=== PATIENT | female | born 1960 | race Caucasian/White ===

== ENCOUNTER 2016-11-15 17:21 | Observation (INO) | payer OTHER ==
[~2016-11-15] VITALS: Ht 165.1 cm; Wt 70.0 kg
[~2016-11-15 17:21] MED LIST: ALPR-138 PO; LORT5TAB PO; Z.0.BCPILL PO
[2016-11-15 17:24] VITALS: BP 122/80; PULSE 80; RESP 15; TEMP 97.8; O2SAT 99
[2016-11-15] MEDS ORDERED: SERT-129 PO (18:35)
[2016-11-15] MEDS ORDERED: ALPR.25 PO (18:35)
[2016-11-15] MEDS ORDERED: XANA1TAB2 PO (18:35)
[2016-11-15] MEDS ORDERED: ATOR20TA15 PO (18:35)
[2016-11-15] MEDS ORDERED: CYCL1TAB29 PO (18:35)
[2016-11-15] MEDS ORDERED: AMLO5TAB2 PO (18:35)
[2016-11-15] MEDS ORDERED: LISI-515 PO (18:35)
[2016-11-15] MEDS ORDERED: ASPIRIN 325 MG TAB PO ONE (18:45)
[2016-11-15] MEDS ORDERED: SODIUM CHLORIDE 0.9% FLUSH 10 ML FLUSH IVF PRN (18:45)
--- NOTE | 2016-11-15 18:51 | PD ---
HPI Chief Complaint: Cardiac Complaint Time Seen by Provider: 18:21 Travel History International Travel<30 days: No Contact w/Intl Traveler<30days: No Traveled to known affect area: No History of Present Illness HPI 56yo F with PMH of HTN here with c/o chest pain and abdominal pain today. States she has not been feeling well for a week and this morning, she was nauseous and lightheaded. She started having midsternal chest pain that feels like someone is sitting on her chest. States it is intermittent, nonradiating and associated with some tingling in her fingers and sob. Also with intermittent abdominal pain that is sharp. Pain is epigastric, radiates to left and right upper abdomen. +Cough. Denies any fever, dysuria, hematuria, diarrhea. PFSH Past Medical History Cardiovascular Problems: Yes High Cholesterol: Yes Diminished Hearing: No Hypertension: Yes (TXT IN THE PAST) Immunizations Current: Yes ?: Not : 3 Para: 3 Past Surgical History Section: Yes (X3) Family History Family Myocardial Infarction: Yes Social History Alcohol Use: Yes (2BEERS/DAY) Tobacco Use: No Substance Use: No Allergies-Medications (Allergen,Severity, Reaction): Coded Allergies: tetanus toxoid, adsorbed (Unverified Allergy, Severe, 10/13/16) Reported Meds & Prescriptions Reported Meds & Active Scripts Active Reported Xanax (Alprazolam) 0.25 Mg Tab 0.25 Mg PO Q4H PRN Lisinopril 20 Mg Tab 20 Mg PO DAILY Atorvastatin (Atorvastatin Calcium) 20 Mg Tab 20 Mg PO HS Amlodipine (Amlodipine Besylate) 5 Mg Tab 5 Mg PO DAILY Sertraline (Sertraline HCl) 100 Mg Tab 100 Mg PO DAILY Review of Systems Except as stated in HPI: all other systems reviewed are Neg Physical Exam Narrative GENERAL: 56yo F in mild distress. SKIN: Focused skin assessment warm/dry. HEAD: Atraumatic. Normocephalic. EYES: Pupils equal and round. No scleral icterus. No injection or drainage. ENT: No nasal bleeding or discharge. Mucous membranes pink and moist. NECK: Trachea midline. No JVD. CARDIOVASCULAR: Regular rate and rhythm. No murmur appreciated. RESPIRATORY: No accessory muscle use. Clear to auscultation. Breath sounds equal bilaterally. GASTROINTESTINAL: Abdomen soft, +TTP epigastric, LUQ, RUQ. No rebound tenderness or guarding. MUSCULOSKELETAL: No obvious deformities. No clubbing. No cyanosis. No edema. NEUROLOGICAL: Awake and alert. No obvious cranial nerve deficits. Motor grossly within normal limits. Normal speech. PSYCHIATRIC: Appropriate mood and affect; insight and judgment normal. Data Data Last Documented VS Vital Signs Date Time Temp Pulse Resp B/P (MAP) Pulse Ox O2 Delivery O2 Flow Rate FiO2 11/15/16 19:47 99 16 149/85 (106) 95 Room Air 11/15/16 17:24 97.8 Orders Orders Electrocardiogram (11/15/16 ) Basic Metabolic Panel (Bmp) (11/15/16 18:37) Complete Blood Count With Diff (11/15/16 18:37) Magnesium (Mg) (11/15/16 18:37) Prothrombin Time / Inr (Pt) (11/15/16 18:37) Act Partial Throm Time (Ptt) (11/15/16 18:37) Troponin I (11/15/16 18:37) Chest, Single Ap (11/15/16 18:37) Ecg Monitoring (11/15/16 18:37) Bilateral Bp Monitoring (11/15/16 18:37) Iv Access Insert/Monitor (11/15/16 18:37) Oximetry (11/15/16 18:37) Oxygen Administration (11/15/16 18:37) Aspirin (Aspirin) (11/15/16 18:45) Sodium Chloride 0.9% Flush (Ns Flush) (11/15/16 18:45) Lipase (11/15/16 18:37) Urinalysis - C+S If Indicated (11/15/16 18:37) Morphine Inj (Morphine Inj) (11/15/16 19:00) Cta Thor Abd Aorta W Iv C W3d (11/15/16 19:02) Iohexol 350 Inj (Omnipaque 350 Inj) (11/15/16 19:18) Potassium Chloride (Kcl) (11/15/16 19:30) Bladder Scan PRN (11/15/16 19:36) Famotidine Inj (Pepcid Inj) (11/15/16 19:45) Al-Mag Hy-Si 40-40-4 Mg/Ml Liq (Mag-Al P (11/15/16 19:45) Lidocaine 2% Viscous (Xylocaine 2% Visco (11/15/16 19:45) Admit Order (Ed Use Only) (11/15/16 20:44) Labs Laboratory Tests Test 11/15/16 18:40 White Blood Count 9.1 TH/MM3 Red Blood Count 4.31 MIL/MM3 Hemoglobin 15.3 GM/DL Hematocrit 43.9 % Mean Corpuscular Volume 101.9 FL Mean Corpuscular Hemoglobin 35.6 PG Mean Corpuscular Hemoglobin Concent 35.0 % Red Cell Distribution Width 12.5 % Platelet Count 283 TH/MM3 Mean Platelet Volume 6.9 FL Neutrophils (%) (Auto) 69.7 % Lymphocytes (%) (Auto) 21.2 % Monocytes (%) (Auto) 7.7 % Eosinophils (%) (Auto) 1.1 % Basophils (%) (Auto) 0.3 % Neutrophils # (Auto) 6.4 TH/MM3 Lymphocytes # (Auto) 1.9 TH/MM3 Monocytes # (Auto) 0.7 TH/MM3 Eosinophils # (Auto) 0.1 TH/MM3 Basophils # (Auto) 0.0 TH/MM3 CBC Comment DIFF FINAL Differential Comment Prothrombin Time 10.5 SEC Prothromb Time International Ratio 1.0 RATIO Activated Partial Thromboplast Time 24.3 SEC Blood Urea Nitrogen 7 MG/DL Creatinine 0.84 MG/DL Random Glucose 97 MG/DL Calcium Level 8.8 MG/DL Magnesium Level 1.8 MG/DL Sodium Level 137 MEQ/L Potassium Level 2.9 MEQ/L Chloride Level 98 MEQ/L Carbon Dioxide Level 27.6 MEQ/L Anion Gap 11 MEQ/L Estimat Glomerular Filtration Rate 71 ML/MIN Troponin I LESS THAN 0.02 NG/ML Lipase 85 U/L [facility] Medical Decision Making Medical Screen Exam Complete: Yes Emergency Medical Condition: Yes Interpretation(s) EKG: NSR 81bpm. TWI V2, V3. Differential Diagnosis ACS vs. anxiety vs. Pneumonia vs. pancreatitis vs. gastritis vs. viral syndrome vs. UTI Narrative Course 56yo F with chest pain as well as abdominal pain that seems to be two different types of pain. Pt seen at end of my shift so sign out to next team to follow up labs, UA, CT and reevaluate. Diagnosis Primary Impression: Chest pain Qualified Codes: R07.9 - Chest pain, unspecified Garcias,Feli DO Nov 15, 2016 18:51
[2016-11-15 18:52] LABS: AUTOMATED NEUTROPHIL # 6.4 TH/MM3 (1.8-7.7); BASOPHIL % 0.3 % (0.0-2.0); EOSINOPHIL # 0.1 TH/MM3 (0-0.4); EOSINOPHIL % 1.1 % (0.0-4.0); HEMATOCRIT 43.9 % (35.0-46.0); HEMO FLAGS DIFF FINAL; LYMPH % 21.2 % (9.0-44.0); LYMPHOCYTE # 1.9 TH/MM3 (1.0-4.8); MEAN CELL VOLUME 101.9 FL (80.0-100.0); MEAN CORPUSCULAR HEMOGLOBIN 35.6 PG (27.0-34.0); MONO % 7.7 % (0.0-8.0); NEUT % 69.7 % (16.0-70.0); PLATELET COUNT 283 TH/MM3 (150-450); RED BLOOD COUNT 4.31 MIL/MM3 (4.00-5.30); RED CELL DISTRIBUTION WIDTH 12.5 % (11.6-17.2); WHITE BLOOD COUNT 9.1 TH/MM3 (4.0-11.0)
[2016-11-15] MEDS ORDERED: MORPHINE SULFATE 4 MG/ML INJ IV PUSH ONE (19:00)
[2016-11-15 19:03] LABS: APTT (PATIENT) 24.3 SEC (24.3-30.1); PROTHROMBIN TIME - PATIENT 10.5 SEC (9.8-11.6)
--- NOTE | 2016-11-15 19:08 | RADRPT ---
EXAM DATE/TIME: 11/15/2016 18:47 [facility] COMPARISON: No previous studies available for comparison. INDICATIONS : Chest pain MEDICAL HISTORY : Hypertension. SURGICAL HISTORY : None. ENCOUNTER: Initial ACUITY: 2 days PAIN SCORE: 3/10 LOCATION: chest FINDINGS: There is trace atelectasis of the left base. No pleural effusion seen. No pneumothorax. Normal heart size and mediastinal silhouette. Thoracic aorta is slightly tortuous. CONCLUSION: Minimal left base atelectasis. Otherwise negative 1 view chest x-ray Osvaldo Rossi MD on November 15, 2016 at 19:06 Board Certified Radiologist. This report was verified electronically.
[2016-11-15] MEDS ORDERED: IOHEXOL 350 MG/ML 10 ML VIAL (for RAD DIAG) IVCONTRAST ONE (19:18)
[2016-11-15 19:19] LABS: ANION GAP 11 MEQ/L (5-15); BICARBONATE 27.6 MEQ/L (21.0-32.0); BLOOD UREA NITROGEN 7 MG/DL (7-18); CHLORIDE 98 MEQ/L (98-107); GLOMERULAR FILTRATION RATE 71 ML/MIN (>89); MAGNESIUM 1.8 MG/DL (1.5-2.5); SODIUM (NA) 137 MEQ/L (136-145)
[2016-11-15 19:22] LABS: POTASSIUM 2.9 MEQ/L (3.5-5.1)
[2016-11-15] MEDS ORDERED: POTASSIUM CHLORIDE 20 MEQ CONTROLLED RELEASE TAB PO ONE (19:30)
--- NOTE | 2016-11-15 19:38 | RADRPT ---
EXAM DATE/TIME: 11/15/2016 19:12 [facility] COMPARISON: No previous studies available for comparison. INDICATIONS : Upper abdominal pain and chest pain. IV CONTRAST: 91 cc Omnipaque 350 (iohexol) IV RADIATION DOSE: 5.49 CTDIvol (mGy) MEDICAL HISTORY : Hypertension. Cardiovascular disease SURGICAL HISTORY : section. ENCOUNTER: Initial ACUITY: 1 day PAIN SCALE: 8/10 LOCATION: Left upper quadrant TECHNIQUE: Volumetric scanning was performed using a multi-row detector CT scanner. The data was post processed with a variety of visualization algorithms including full volume maximum intensity projection, multi -planar sliding thin slab reformation, curved planar reformation, and surface rendering techniques. Using automated exposure control and adjustment of the mA and/or kV according to patient size, radiat ion dose was kept as low as reasonably achievable to obtain optimal diagnostic quality images. DICOM format image data is available electronically for review and comparison. FINDINGS: LUNGS: Trace dependent atelectasis of both bases. No pleural effusion or pneumothorax. MEDIASTINUM: No abnormally enlarged lymph nodes by CT criteria. No axillary or hilar abnormalities are identified. There seems to be some wall thickening of the distal esophagus. ABDOMEN: The liver and spleen are free of focal defects. The gallbladder and pancreas demonstrate no abnormali ty. 8mm left and 12 mm right adrenal nodules. The kidneys demonstrate no evidence of solid renal mass or hydronephrosis. No free fluid or abdominal masses are identified. No para-aortic adenopathy is se en. Normal appendix. PELVIS: No evidence of free fluid or pelvic mass. No abnormally enlarged inguinal or retroperitoneal lymph no esther are present. The bladder is unremarkable. THORACIC AORTA: The thoracic aortic root is normal with normal branching of the great vessels. There is no evidence of aneurysm or dissection. ABDOMINAL AORTA: The aorta is normal in caliber without aneurysm or dissection. The renal arteries are patent bilater ally. The proximal celiac and superior mesenteric arteries are patent and normal in diameter. PELVIC VESSELS: The internal iliac and external iliac vessels are patent without aneurysm or stenosis. CONCLUSION: 1. Normal aorta. 2. Some apparent nonspecific wall thickening of the distal esophagus. Neoplasm, esophagitis and/or re flux disease would be in the differential. 3. Small bilateral adrenal nodules, most likely benign adenomas. Osvaldo Rossi MD on November 15, 2016 at 19:32 Board Certified Radiologist. This report was verified electronically.
[2016-11-15] MEDS ORDERED: ALUMINUM/MAGNESIUM/SIMETH 30 ML CUP PO ONE (19:45)
[2016-11-15] MEDS ORDERED: LIDOCAINE VISCOUS 2% SOLN 15 ML UDC PO ONE (19:45)
[2016-11-15] MEDS ORDERED: FAMOTIDINE 20 MG/2 ML VIAL IV PUSH ONE (19:45)
[2016-11-15 19:47] VITALS: BP 149/85; PULSE 99; RESP 16; O2SAT 95
--- NOTE | 2016-11-15 20:08 | PD ---
Physical Exam Date Seen by Provider: Nov 15, 2016 Data Data Last Documented VS Vital Signs Date Time Temp Pulse Resp B/P (MAP) Pulse Ox O2 Delivery O2 Flow Rate FiO2 11/15/16 19:47 99 16 149/85 (106) 95 Room Air 11/15/16 17:24 97.8 Orders Orders Electrocardiogram (11/15/16 ) Basic Metabolic Panel (Bmp) (11/15/16 18:37) Complete Blood Count With Diff (11/15/16 18:37) Magnesium (Mg) (11/15/16 18:37) Prothrombin Time / Inr (Pt) (11/15/16 18:37) Act Partial Throm Time (Ptt) (11/15/16 18:37) Troponin I (11/15/16 18:37) Chest, Single Ap (11/15/16 18:37) Ecg Monitoring (11/15/16 18:37) Bilateral Bp Monitoring (11/15/16 18:37) Iv Access Insert/Monitor (11/15/16 18:37) Oximetry (11/15/16 18:37) Oxygen Administration (11/15/16 18:37) Aspirin (Aspirin) (11/15/16 18:45) Sodium Chloride 0.9% Flush (Ns Flush) (11/15/16 18:45) Lipase (11/15/16 18:37) Urinalysis - C+S If Indicated (11/15/16 18:37) Morphine Inj (Morphine Inj) (11/15/16 19:00) Cta Thor Abd Aorta W Iv C W3d (11/15/16 19:02) Iohexol 350 Inj (Omnipaque 350 Inj) (11/15/16 19:18) Potassium Chloride (Kcl) (11/15/16 19:30) Bladder Scan PRN (11/15/16 19:36) Famotidine Inj (Pepcid Inj) (11/15/16 19:45) Al-Mag Hy-Si 40-40-4 Mg/Ml Liq (Mag-Al P (11/15/16 19:45) Lidocaine 2% Viscous (Xylocaine 2% Visco (11/15/16 19:45) Admit Order (Ed Use Only) (11/15/16 20:44) Labs Laboratory Tests Test 11/15/16 18:40 White Blood Count 9.1 TH/MM3 Red Blood Count 4.31 MIL/MM3 Hemoglobin 15.3 GM/DL Hematocrit 43.9 % Mean Corpuscular Volume 101.9 FL Mean Corpuscular Hemoglobin 35.6 PG Mean Corpuscular Hemoglobin Concent 35.0 % Red Cell Distribution Width 12.5 % Platelet Count 283 TH/MM3 Mean Platelet Volume 6.9 FL Neutrophils (%) (Auto) 69.7 % Lymphocytes (%) (Auto) 21.2 % Monocytes (%) (Auto) 7.7 % Eosinophils (%) (Auto) 1.1 % Basophils (%) (Auto) 0.3 % Neutrophils # (Auto) 6.4 TH/MM3 Lymphocytes # (Auto) 1.9 TH/MM3 Monocytes # (Auto) 0.7 TH/MM3 Eosinophils # (Auto) 0.1 TH/MM3 Basophils # (Auto) 0.0 TH/MM3 CBC Comment DIFF FINAL Differential Comment Prothrombin Time 10.5 SEC Prothromb Time International Ratio 1.0 RATIO Activated Partial Thromboplast Time 24.3 SEC Blood Urea Nitrogen 7 MG/DL Creatinine 0.84 MG/DL Random Glucose 97 MG/DL Calcium Level 8.8 MG/DL Magnesium Level 1.8 MG/DL Sodium Level 137 MEQ/L Potassium Level 2.9 MEQ/L Chloride Level 98 MEQ/L Carbon Dioxide Level 27.6 MEQ/L Anion Gap 11 MEQ/L Estimat Glomerular Filtration Rate 71 ML/MIN Troponin I LESS THAN 0.02 NG/ML Lipase 85 U/L [facility] Medical Record Reviewed: Yes Supervised Visit with ANTONIO: Yes Interpretation(s) Vital Signs Date Time Temp Pulse Resp B/P (MAP) Pulse Ox O2 Delivery O2 Flow Rate FiO2 11/15/16 19:47 99 16 149/85 (106) 95 Room Air 11/15/16 18:42 Nasal Cannula 11/15/16 18:42 Room Air 11/15/16 17:24 97.8 80 15 122/80 (94) 99 Laboratory Tests Test 11/15/16 18:40 White Blood Count 9.1 TH/MM3 (4.0-11.0) Red Blood Count 4.31 MIL/MM3 (4.00-5.30) Hemoglobin 15.3 GM/DL (11.6-15.3) Hematocrit 43.9 % (35.0-46.0) Mean Corpuscular Volume 101.9 FL (80.0-100.0) Mean Corpuscular Hemoglobin 35.6 PG (27.0-34.0) Mean Corpuscular Hemoglobin Concent 35.0 % (32.0-36.0) Red Cell Distribution Width 12.5 % (11.6-17.2) Platelet Count 283 TH/MM3 (150-450) Mean Platelet Volume 6.9 FL (7.0-11.0) Neutrophils (%) (Auto) 69.7 % (16.0-70.0) Lymphocytes (%) (Auto) 21.2 % (9.0-44.0) Monocytes (%) (Auto) 7.7 % (0.0-8.0) Eosinophils (%) (Auto) 1.1 % (0.0-4.0) Basophils (%) (Auto) 0.3 % (0.0-2.0) Neutrophils # (Auto) 6.4 TH/MM3 (1.8-7.7) Lymphocytes # (Auto) 1.9 TH/MM3 (1.0-4.8) Monocytes # (Auto) 0.7 TH/MM3 (0-0.9) Eosinophils # (Auto) 0.1 TH/MM3 (0-0.4) Basophils # (Auto) 0.0 TH/MM3 (0-0.2) CBC Comment DIFF FINAL Differential Comment Prothrombin Time 10.5 SEC (9.8-11.6) Prothromb Time International Ratio 1.0 RATIO Activated Partial Thromboplast Time 24.3 SEC (24.3-30.1) Blood Urea Nitrogen 7 MG/DL (7-18) Creatinine 0.84 MG/DL (0.50-1.00) Random Glucose 97 MG/DL (74-106) Calcium Level 8.8 MG/DL (8.5-10.1) Magnesium Level 1.8 MG/DL (1.5-2.5) Sodium Level 137 MEQ/L (136-145) Potassium Level 2.9 MEQ/L (3.5-5.1) Chloride Level 98 MEQ/L (98-107) Carbon Dioxide Level 27.6 MEQ/L (21.0-32.0) Anion Gap 11 MEQ/L (5-15) Estimat Glomerular Filtration Rate 71 ML/MIN (>89) Troponin I LESS THAN 0.02 NG/ML Lipase 85 U/L (73-393) Last Impressions Aorta CTA 11/15/161901 Signed Impressions: Service Date/Time: Tuesday, November 15, 2016 19:12 - CONCLUSION: 1. Normal aorta. 2. Some apparent nonspecific wall thickening of the distal esophagus. Neoplasm, esophagitis and/or reflux disease would be in the differential. 3. Small bilateral adrenal nodules, most likely benign adenomas. Osvaldo Rossi MD Chest X-Ray 11/15/167 Signed Impressions: Service Date/Time: Tuesday, November 15, 2016 18:47 - CONCLUSION: Minimal left base atelectasis. Otherwise negative 1 view chest x-ray Osvaldo Rossi MD Narrative Course Patient is a 66-year-old female history of hypertension, anxiety, esophagitis, presents to emergency room complaints of chest pain and abdominal pain. Patient reports that she began to have chest pain this morning, reports that chest pain is midsternal nature and feels like a "elephant sitting on my chest. " Patient reports resolutions of the symptoms at this time, she has not followed-up with a internet assessor or had a cardiac workup at yet. Patient also complaining of upper epigastric abdominal pain. Patient reports the symptoms have been ongoing for the past few weeks, that her primary care doctor, Dr. Cruz was going to put her in for a GI workup. Patient is comfortable at this time. I reviewed all labs and all studies in detail. Patient with nonspecific ST-T wave changes on EKG. Patient also with esophagitis. Symptoms could be due to ACS versus esophagitis. Plan to obs in the chest pain unit at this time for cardiac monitoring. Patient agreeable to plan of care BS [id number], patient unable to urinate, newby catheter ordered. Patient refused newby catheter, she went to the restroom and reports that she was able to evacuate all the urine from her bladder. denies urinary urgency at this time. Diagnosis Primary Impression: Chest pain Qualified Codes: R07.9 - Chest pain, unspecified Additional Impressions: Esophagitis Hypokalemia Admitting Information Admitting Physician Requests: Siria Arevalo DO Nov 15, 2016 20:08
--- NOTE | 2016-11-15 21:45 | EKG ---
Date Performed: 11/15/2016 Time Performed: 18:03:20 PTAGE: 56 years EKG: Sinus rhythm NONSPECIFIC ST & T-WAVE ABNORMALITY BORDERLINE ECG PREVIOUS TRACING : 08/18/2010 16.32 No significant change from previous tracing noted. DOCTOR: Mark Weaver Interpretating Date/Time 11/15/2016 21:43:52
[2016-11-15 23:04] VITALS: BP 139/78; PULSE 74; RESP 18; TEMP 98; O2SAT 97
[2016-11-15 23:09] LABS: CREATINE KINASE 65 U/L (26-192)
[2016-11-15 23:47] LABS: BLOOD, URINE NEG (NEG); GLUCOSE,URINE NEG (NEG); KETONE, URINE NEG (NEG); NITRITE,URINE NEG (NEG); PH, URINE 7.5 (5.0-8.5); SQUAMOUS EPITHELIAL CELL URINE <1 /hpf (0-5); URINE COLOR COLORLESS (YELLW/STRAW)
[2016-11-15 23:50] LABS: COMMENT (UR) CULT NOT INDICATED; CULTURE IF INDICATED CULT NOT INDICATED
[2016-11-16 02:51] VITALS: PULSE 81
[2016-11-16 06:03] VITALS: BP 118/75; PULSE 71; RESP 18; TEMP 98.1; O2SAT 94
--- NOTE | 2016-11-16 09:24 | HHI.HP ---
HPI Primary Care Physician Osvaldo Chisholm DO Chief Complaint Chest pain History of Present Illness 56-year-old female with history of GERD, anxiety, depression, hypertension, and hyperlipidemia presents to the emergency room for further evaluation of chest pain. Onset yesterday 8 a.m. reports waking up with dizziness, nausea, vomiting , and stating I was mixing up my words when talking. Symptoms lasted throughout the day and around 5 PM at that time she decided to drive herself to the emergency room. Also endorses intermittent "quick, stabbing sensations all over my chest." No particular area of chest did she experience more chest discomfort. Associated symptoms included diaphoresis. Denying shortness of breath. No known precipitating or relieving factors. Endorses similar pain in the past when she had panic attacks and believes she could have been having a panic attack. Was concerned she was having a stroke due to getting her words mixed up. Denies any slurred speech, weakness, or paralysis. Review of Systems General: No weakness, fever, or chills. HEENT: No MUNOZ, no nasal congestion or drainage. CV: No CP, pressure, palpitations, intermittent leg pain, dizziness RESP: No SOB, cough, wheeze, hemoptysis, asthma GI:Endorses nausea and vomiting a few times yesterday and last night. Emesis bilious, denying blood or coffee ground. Intermittent dysphasia with certain foods, currently pending a GI consult. Nausea and vomiting resolved. No bowel changes, diarrhea, pain, distention, melena, or blood in the stool. : No dysuria, urgency, or frequency EXT: No lower leg edema, no paraesthesias MS: No discomfort or change in ROM NEURO: No change in memory, dizziness, LOC, motor/sensory deficits PSYCH: History of anxiety and depression, stating both are controlled with current medication regimen. States she believes she may have had a panic attack. SKIN: No rashes, no concerning lesions Past Family Social History Allergies: Coded Allergies: tetanus toxoid, adsorbed (Unverified Allergy, Severe, 10/13/16) Past Medical History GERD, hypertension, hyperlipidemia, anxiety, depression, panic attacks Past Surgical History 3 C-sections Reported Medications Reported Meds & Active Scripts Active Reported Xanax (Alprazolam) Unknown Strength Tab Unknown Dose PO Q6H PRN Xanax (Alprazolam) 0.25 Mg Tab 0.25 Mg PO Q4H PRN Lisinopril 20 Mg Tab 20 Mg PO DAILY Atorvastatin (Atorvastatin Calcium) 20 Mg Tab 20 Mg PO HS Amlodipine (Amlodipine Besylate) 5 Mg Tab 5 Mg PO DAILY Sertraline (Sertraline HCl) 100 Mg Tab 100 Mg PO DAILY Flexeril (Cyclobenzaprine HCl) 10 Mg Tab 10 Mg PO TID Active Ordered Medications Current Medications Medications (Trade) Dose Ordered Sig/Krystle Route Start Time Stop Time Status Last Admin (NS Flush) 2 ml UNSCH PRN IVF 11/15/16 18:45 11/16/16 08:10 Family History Father first heart attack at age 47 Social History Known hypertension and hyperlipidemia. No known personal coronary artery disease or diabetes. Quit smoking 14 years ago. Drinks a beer occasionally. Denies any illegal drug use. Works at [employer] office Past cardiac testing None Physical Exam Vital Signs Vital Signs Date Time Temp Pulse Resp B/P (MAP) Pulse Ox O2 Delivery O2 Flow Rate FiO2 11/16/16 06:03 98.1 71 18 118/75 (89) 94 11/16/16 02:51 81 11/15/16 23:04 98.0 74 18 139/78 (98) 97 11/15/16 22:49 11/15/16 19:47 99 16 149/85 (106) 95 Room Air 11/15/16 18:42 Nasal Cannula 11/15/16 18:42 Room Air 11/15/16 17:24 97.8 80 15 122/80 (94) 99 Physical Exam GENERAL: Alert WN, WD, NAD, anxious, female HEAD: NC, AT CV: RRR, without murmur, rub, gallop, no JVD, S1-S2 no S3-S4. RESP: Clear lungs throughout bilateral, no crackles, wheeze, rhonchi, symmetrical chest rise, nonlabored, able to speak in full sentences ABD: Soft, NT, ND, no masses, positive bowel tones BACK: No CVAT EXT: Pulses +24, no dependent edema MS: Normal tone 4 extremities, nontender, no obvious deformities, full range of motion NEURO: CN II through CN XII grossly intact, motor strength 5/5, gait WNL PSYCH: A+O 3, pleasant affect, appropriate speech, appropriate mood and affect , insight and judgment SKIN: Normal turgor, normal texture, no lesions, no rashes Laboratory Laboratory Tests Test 11/15/16 18:40 11/15/16 22:30 11/15/16 23:18 11/16/16 01:00 White Blood Count 9.1 Red Blood Count 4.31 Hemoglobin 15.3 Hematocrit 43.9 Mean Corpuscular Volume 101.9 Mean Corpuscular Hemoglobin 35.6 Mean Corpuscular Hemoglobin Concent 35.0 Red Cell Distribution Width 12.5 Platelet Count 283 Mean Platelet Volume 6.9 Neutrophils (%) (Auto) 69.7 Lymphocytes (%) (Auto) 21.2 Monocytes (%) (Auto) 7.7 Eosinophils (%) (Auto) 1.1 Basophils (%) (Auto) 0.3 Neutrophils # (Auto) 6.4 Lymphocytes # (Auto) 1.9 Monocytes # (Auto) 0.7 Eosinophils # (Auto) 0.1 Basophils # (Auto) 0.0 CBC Comment DIFF FINAL Differential Comment Prothrombin Time 10.5 Prothromb Time International Ratio 1.0 Activated Partial Thromboplast Time 24.3 Blood Urea Nitrogen 7 Creatinine 0.84 Random Glucose 97 Calcium Level 8.8 Magnesium Level 1.8 Sodium Level 137 Potassium Level 2.9 Chloride Level 98 Carbon Dioxide Level 27.6 Anion Gap 11 Estimat Glomerular Filtration Rate 71 Troponin I LESS THAN 0.02 LESS THAN 0.02 0.03 Lipase 85 Total Creatine Kinase 65 24 Urine Color COLORLESS Urine Turbidity CLEAR Urine pH 7.5 Urine Specific [place] 1.008 Urine Protein NEG Urine Glucose (UA) NEG Urine Ketones NEG Urine Occult Blood NEG Urine Nitrite NEG Urine Bilirubin NEG Urine Urobilinogen LESS THAN 2.0 Urine Leukocyte Esterase NEG Urine WBC LESS THAN 1 Urine Squamous Epithelial Cells <1 Microscopic Urinalysis Comment CULT NOT INDICATED Result Diagram: 11/15/16 1840 11/15/16 1840 Imaging Last Impressions Myocardial Perfusion Scan Nuc Med 11/16/16 0000 Signed Impressions: Service Date/Time: Wednesday, November 16, 2016 11:22 - CONCLUSION: 1. Normal left ventricle perfusion. 2. Normal left ventricle wall motion and ejection fraction. RISK CATEGORY: Low (<1%% Annual Mortality Rate) Osvaldo Kearney MD Aorta CTA 11/15/16 1902 Signed Impressions: Service Date/Time: Tuesday, November 15, 2016 19:12 - CONCLUSION: 1. Normal aorta. 2. Some apparent nonspecific wall thickening of the distal esophagus. Neoplasm, esophagitis and/or reflux disease would be in the differential. 3. Small bilateral adrenal nodules, most likely benign adenomas. Osvaldo Rossi MD Chest X-Ray 11/15/16 8317 Signed Impressions: Service Date/Time: Tuesday, November 15, 2016 18:47 - CONCLUSION: Minimal left base atelectasis. Otherwise negative 1 view chest x-ray Osvaldo Rossi MD Course EKG Normal sinus rhythm, normal axis, nonspecific T-wave changes Caprini VTE Risk Assessment Caprini VTE Risk Assessment: No/Low Risk (score <= 1) Caprini Risk Assessment Model Point Value = 1 Point Value = 2 Point Value = 3 Point Value = 5 Age 41-60 Minor surgery BMI > 25 kg/m2 Swollen legs Varicose veins or History of unexplained or recurrent spontaneous Oral contraceptives or hormone replacement Sepsis (< 1 month) Serious lung disease, including pneumonia (< 1 month) Abnormal pulmonary function Acute myocardial infarction Congestive heart failure (< 1 month) History of inflammatory bowel disease Medical patient at bed rest Age 61-74 Arthroscopic surgery Major open surgery (> 45 min) Laparoscopic surgery (> 45 min) Malignancy Confined to bed (> 72 hours) Immobilizing plaster cast Central venous access Age >= 75 History of VTE Family history of VTE Factor V Leiden Prothrombin [id number] Lupus anticoagulant Anticardiolipin antibodies Elevated serum homocysteine Heparin-induced thrombocytopenia Other congenital or acquired thrombophilia Stroke (< 1 month) Elective arthroplasty Hip, pelvis, or leg fracture Acute spinal cord injury (< 1 month) Prophylaxis Regimen Total Risk Factor Score Risk Level Prophylaxis Regimen 0-1 Low Early ambulation 2 Moderate Order ONE of the following: *Sequential Compression Device (SCD) *Heparin 5000 units SQ BID 3-4 Higher Order ONE of the following medications: *Heparin 5000 units SQ TID *Enoxaparin/Lovenox 40 mg SQ daily (WT < 150 kg, CrCl > 30 mL/min) *Enoxaparin/Lovenox 30 mg SQ daily (WT < 150 kg, CrCl > 10-29 mL/min) *Enoxaparin/Lovenox 30 mg SQ BID (WT < 150 kg, CrCl > 30 mL/min) AND/OR *Sequential Compression Device (SCD) 5 or more Highest Order ONE of the following medications: *Heparin 5000 units SQ TID (Preferred with Epidurals) *Enoxaparin/Lovenox 40 mg SQ daily (WT < 150 kg, CrCl > 30 mL/min) *Enoxaparin/Lovenox 30 mg SQ daily (WT < 150 kg, CrCl > 10-29 mL/min) *Enoxaparin/Lovenox 30 mg SQ BID (WT < 150 kg, CrCl > 30 mL/min) AND *Sequential Compression Device (SCD) Assessment and Plan Assessment and Plan Atypical chest pain-admitted to chest pain center. Ruled out with 3 sets of EKGs, cardiac enzymes, monitor overnight. Seen and evaluated by Dr. Rik Estrada. Proceed with chemical stress test. If unremarkable will discharge later this afternoon. Patient is agreeable to plan of care. Encouraged to follow-up with PCP. Hypokalemia-60 mEq KCl supplementation provided ER, vomiting has resolved Hypertension-continue amlodipine and lisinopril Anxiety-continue Xanax, encourage daily activity, eating a well-balanced diet, getting plenty of rest. Utilize support from friends and family, discussed possible support groups to help identify other anxiety coping skills. Depression-continue sertraline Laine Hearn Nov 16, 2016 09:24
[2016-11-16] MEDS ORDERED: ALPRAZolam 0.25 MG TAB PO PRN (09:30)
[2016-11-16] MEDS ORDERED: LISINOPRIL 20 MG TAB PO SCH (09:45)
[2016-11-16] MEDS ORDERED: amLODIPine BESYLATE 5 MG TAB PO SCH (09:45)
[2016-11-16] MEDS ORDERED: SERTRALINE HCL 100 MG TAB PO SCH (09:45)
[2016-11-16 10:49] VITALS: BP 135/78; PULSE 87; RESP 16; TEMP 98.5; O2SAT 95
[2016-11-16] MEDS ORDERED: REGADENOSON INJ 0.4 MG/5 ML SYR ONE (12:25)
--- NOTE | 2016-11-16 13:30 | RADRPT ---
EXAM DATE/TIME: 11/16/2016 11:22 [facility] COMPARISON: CTA THORACIC ABDOMINAL AORTA W 3D RECON, November 15, 2016, 19:12. INDICATIONS : Midsternal chest pain. Angina. DOSE: 26.2 mCi Tc99m Myoview at stress. 8.2 mCi Tc99m Myoview at rest. 0.4 mg Lexiscan STRESS SYMPTOMS: Dyspnea. EJECTION FRACTION: > 70% MEDICAL HISTORY : Hypertension. SURGICAL HISTORY : None. ENCOUNTER: Initial ACUITY: 1 day PAIN SCALE: 3/10 LOCATION: Midsternal chest TECHNIQUE: The patient underwent pharmacologic stress with infusion of prescribed dose. Continuous ECG tracing was monitored during stress. Gated SPECT imaging was performed after stress and conventional SPECT i maging was performed at rest. The examination was performed on a SPECT/CT scanner, both attenuation and non-corrected datasets were reviewed. FINDINGS: DISTRIBUTION: The maximum perfused segment at stress is in the anterolateral wall. PERFUSION STUDY: The pattern of perfusion at stress is within normal limits. No fixed or reversible perfusion defect i s identified. GATED STUDY: There is intact wall motion and thickening without hypokinetic or dyskinetic segments. CONCLUSION: 1. Normal left ventricle perfusion. 2. Normal left ventricle wall motion and ejection fraction. RISK CATEGORY: Low (<1% Annual Mortality Rate) Osvaldo Kearney MD on November 16, 2016 at 13:26 Board Certified Radiologist. This report was verified electronically.
--- NOTE | 2016-11-16 13:49 | HHI.DCPOC ---
Discharge Care Plan Diagnosis: (1) Atypical chest pain (2) Situational stress (3) Anxiety (4) Hypertension Goals to Promote Your Health * To prevent worsening of your condition and complications * To maintain your health at the optimal level Directions to Meet Your Goals Take your medications as prescribed Follow your dietary instruction Follow activity as directed Keep your appointments as scheduled Take your immunizations and boosters as scheduled If your symptoms worsen call your PCP, if no PCP go to Urgent Care Center or Emergency Room Smoking is Dangerous to Your Health. Avoid second hand smoke Call the 24-hour hour crisis hotline for domestic abuse at Laine Hearn Nov 16, 2016 13:49
[2016-11-16 13:53] VITALS: BP 121/73; PULSE 89; RESP 16; TEMP 98.2; O2SAT 93
--- NOTE | 2016-11-16 14:04 | EKG ---
Date Performed: 11/16/2016 Time Performed: 01:22:58 PTAGE: 56 years EKG: Sinus rhythm NONSPECIFIC T-WAVE ABNORMALITY BORDERLINE ECG PREVIOUS TRACING : 11/16/2016 01.22 Since previous tracing, no significant change noted DOCTOR: Rik Estrada Interpretating Date/Time 11/19/2016 09:16:37
--- NOTE | 2016-11-16 14:05 | EKG ---
Date Performed: 11/15/2016 Time Performed: 22:24:35 PTAGE: 56 years EKG: Sinus rhythm NONSPECIFIC T-WAVE ABNORMALITY BORDERLINE ECG PREVIOUS TRACING : 11/15/2016 18.03 Since previous tracing, no significant change noted DOCTOR: Rik Estrada Interpretating Date/Time 11/16/2016 14:03:55
--- NOTE | 2016-11-16 14:06 | TR ---
Date Performed: 11/16/2016 Time Performed: 12:14:13 DOCTOR: Rik Estrada DRUG LIST: CLINICAL HISTORY: REASON FOR TEST: Angina REASON FOR ENDING: OBSERVATION: CONCLUSION: Lexiscan stress test was performed under standard four minute protocol. Radionuclid e was injected one minute prior to ending the test. No electrocardiographic abormalities were present to suggest ischemia. Nuclear imaging and interpretation are pending. COMMENTS:
[2016-11-16] MEDS ORDERED: ATORVASTATIN 20 MG TAB PO SCH (21:00)
== END 2016-11-16 14:38 | disposition home or self-care (01) ==
LOC: NEPC 17:21 → NEDA 20:47 → NEPGCP 22:57
DX: R07.89 Other chest pain (principal); I10 Essential (primary) hypertension; E87.6 Hypokalemia; F43.0 Acute stress reaction; R10.13 Epigastric pain; R11.0 Nausea; R42 Dizziness and giddiness; E78.00 Pure hypercholesterolemia, unspecified; K21.0 Gastro-esophageal reflux disease with esophagitis
CPT/HCPCS: 71010; 71275; 74174; 78452; 80048; 81001; 82550; 83690; 83735; 84484; 85025; 85610; 85730; 93005; 93017; 96374; 96375; 99285; A9502; G0378; J2270; J2785; Q9967